=== PATIENT | female | born 1930 | race Caucasian/White ===

== ENCOUNTER 2016-12-08 10:18 | Emergency (ER) | payer OTHER ==
[~2016-12-08 10:18] MED LIST: APRESOLINE10 M1 PO; ARICEPT PO; ASPIRIN81 M2 PO; CORDARONE200 M1 PO; COUMADIN2.5 MG PO; COZAAR100 MG PO; GLUCOPHAGE500 MG PO; HYDRALAZINE HCL25 MG PO; HYDROCHLOROTHIA25 MG PO; LEXAPRO20 MG PO; LIPITOR40 MG PO; LOVENOX80 MG/0.8 INJ; TOPROL XL50 MG PO; TRILIPIX135 MG PO; VICODIN 5/500 T1 TAB PO
[2016-12-08 11:42] LABS: BASOPHIL# 0.1 X10e3 (0-0.3); BASOPHIL% 0.6 % (0-2.5); EOSINOPHIL# 0.3 X10e3 (0-0.7); EOSINOPHIL% 3.7 % (0.0-7.0); HEMATOCRIT 39.1 % (35.0-45.0); HEMOGLOBIN 12.5 gm/dL (12.0-16.0); LYMPHOCYTE% 12.3 % (17.0-45.0); MEAN CORPUSCULAR HEMOGLOBIN 27.5 PG (28-34); MONOCYTE# 0.8 X10e3 (0-1.0); MONOCYTE% 9.2 % (3.0-12.0); NEUTROPHIL# 6.1 X10e3 (1.5-7.1); NEUTROPHIL% 74.2 % (40-75); PLATELET COUNT 278 X10e3 (140-420); RED BLOOD COUNT 4.55 X10e (3.90-5.30); RED CELL DISTRIBUTION WIDTH 14.4 % (11.0-15.5); WHITE BLOOD COUNT 8.3 X10e3 (4.0-10.5)
[2016-12-08 11:49] LABS: DIFF IND NO
[2016-12-08 12:04] LABS: PARTIAL THROMBOPLASTIN TIME 63.7 SECONDS (23.5-31.3); PROTHROMBIN TIME (PATIENT) 98.3 SECONDS (9.6-11.5)
[2016-12-08 12:21] LABS: INR 8.7
[2016-12-08 12:35] LABS: URINE SOURCE CLEAN CATCH
[2016-12-08 12:43] LABS: URINE APPEARANCE CLEAR; URINE BILIRUBIN NEG (NEG); URINE BLOOD NEG (NEG); URINE COLOR YELLOW; URINE GLUCOSE NEG (NEG); URINE KETONE NEG (NEG); URINE LEUKOCYTE ESTERASE NEG (NEG); URINE NITRATE NEG (NEG); URINE PH 6.5 (5-8); URINE PROTEIN NEG (NEG); URINE SPECIFIC GRAVITY 1.013 (1.003-1.035)
[2016-12-08 12:56] LABS: CULTURE INDICATED? NO
[2016-12-08 13:06] LABS: BUN/CREATININE RATIO 11.66; CALCIUM SERUM 9.5 mg/dL (8.4-10.2); CREATININE SERUM 0.6 mg/dL (0.6-1.4); GLOM FILT RATE Estimated 83.7 mL/min (>60); POTASSIUM 3.5 mmol/L (3.5-5.1)
== END 2016-12-08 14:15 | disposition home or self-care (01) ==
LOC: CED 10:18 → CFTX 10:18 → CED 11:29
PROVIDERS: Emergency Medicine
DX: K05.219 Aggressive periodontitis, localized, unspecified severity (principal); R79.1 Abnormal coagulation profile; E78.5 Hyperlipidemia, unspecified; F03.90 Unspecified dementia, unspecified severity, without behavioral disturbance, psychotic disturbance, mood disturbance, and anxiety; I48.91 Unspecified atrial fibrillation; E11.9 Type 2 diabetes mellitus without complications; Z79.01 Long term (current) use of anticoagulants
CPT/HCPCS: 36415; 80048; 81003; 85025; 85610; 85730; 99283; J3430

== ENCOUNTER 2017-02-17 07:37 | Observation (INO) | payer OTHER ==
[~2017-02-17] VITALS: Ht 162.6 cm; Wt 73.4 kg
--- NOTE | ~2017-02-17 | CT52 ---
[facility] A Service of [facility] & [facility] RADIOLOGY TEXT RESULTS PATIENT: DOMINICK SCHOFIELD LOCATION: [facility] [id number] : 32 UNIT #: [id number] AGE: [address]: FABIENNE RAI MD SEX: F ORDER DR: [id number] [facility] [address] [place], [place] [address] [id number] E MR#: [id number] Acc #: [id number] NAME: DOMINICK SCHOFIELD : 1930 SEX: F STUDY DATE/TIME: UNIT: [facility] ROOM: STUDY DESCRIPTION: CT Cervical Spine Wo Cont Attending Physician: Patsy Aponte Pa-C Ordering Physician: Patsy Aponte Pa-C Primary Care Physician: Bobbi Sanders M.D. MEDICAL IMAGING REPORT This report is preliminary unless electronic signature is present EXAM CT cervical spine without contrast 02/17/2017 0952 hours HISTORY 86-year-old woman who fell while getting out of bed today complaining of neck tenderness and diffuse head pain. Low blood sugar at 23. COMPARISON None TECHNIQUE Thin cut axial noncontrasted images were obtained from the skull base to the upper thoracic spine. Sagittal and coronal reconstructions were performed. Total exam DLP 8331 mGy - cm. This CT exam was performed with one or more of the following radiation dose reduction techniques: automatic exposure control, adjustment of mA and/or kV according to patient size, and iterative reconstruction. FINDINGS Images through the posterior fossa demonstrate some atrophy. No skull base fracture is seen. The mastoid air cells are clear. There is spurring at the C1-2 articulation but no dens fracture seen. C2-3 is negative. C3-4 demonstrates disc height loss, disc osteophyte complex. Facet hypertrophy resulting in mild canal stenosis. There is 2 mm retrolisthesis of C2-C3 on C4. C4-5 demonstrates broad-based central disc osteophyte complex flattening the anterior aspect of the cord. There is no foraminal narrowing. No fracture. C5-6 demonstrates disc height loss, endplate uncovertebral spurring, [facility] A Service of [facility] & [facility] RADIOLOGY TEXT RESULTS PATIENT: DOMINICK SCHOFIELD [facility] [id number] [birth year] UNIT #: [id number] AGE: [address]: FABIENNE RAI MD SEX: F ORDER DR: central disc bulging resulting in mild to moderate central canal stenosis. No definite foraminal narrowing. C6-7 demonstrates broad-based disc bulging touching the anterior aspect of the cord without significant foraminal narrowing. No fracture. C7-T1 and T1-T2 are normal. Small low-density right thyroid nodule is incidentally noted. IMPRESSION There is degenerative disc disease in the cervical spine with no fracture. There is a few millimeters retrolisthesis of C3 on 4 and C5 on C6 related to degenerative disc disease and facet arthropathy. There is a central disc osteophyte complex at C3-4, C4-5 and C5-6 resulting in mild multilevel canal stenosis. Dictated by... Laney Frias M.D. THIS IS AN ELECTRONICALLY VERIFIED REPORT Laney Frias M.D. at 02/17/2017 6:53 PM LARA/silvia TD: 02/17/2017 15:35 JOB #: [id number] MEDICAL IMAGING REPORT Page 1 of 1 COPY
--- NOTE | ~2017-02-17 | HP ---
Unit #: [id number] #: [id number] Patient: DOMINICK SCHOFIELD [id number] [address] [address] [id number] E MR#: [id number] NAME: DOMINIKC SCHOFIELD ROOM: Age: 86 Sex: F Admission Date: 02/17/2017 : 1930 Attending Physician: Patsy Aponte Pa-C Primary Care Physician: Bobbi Sanders M.D. HISTORY AND PHYSICAL CHIEF COMPLAINT Low blood sugar. HISTORY OF PRESENT ILLNESS The patient is an 86-year-old female with a history of diabetes mellitus, hypertension, and mild dementia, brought to the emergency room with a low blood sugar. The patient is a poor historian, and the history is obtained by speaking to the ER physician and the R.N. at the bedside. The patient had a fall when getting out of bed earlier this morning, and patient was found to be hypotensive and had a blood sugar of 23. The patient stated that she has been feeling sick since this morning. She had a good night and denies any headache, chest pain, or shortness of breath. The patient is being admitted for the above reasons. She denies any fever, chills, nausea, or vomiting. The patient complains of abdominal discomfort in the lower abdomen, and denies any urinary urgency or hesitancy. PAST MEDICAL HISTORY 1. Hypertension. 2. Diabetes mellitus. 3. Depression. 4. Dementia. 5. Hyperlipidemia. 6. Tonsillectomy and adenoidectomy. ALLERGIES None. FAMILY HISTORY Positive for CVA. SOCIAL HISTORY Patient lives with her . She is a lifelong nonsmoker and does not drink alcohol. MEDICATIONS 1. Lexapro. 2. Cozaar. 3. Donepezil. 4. Ultram. 5. Coumadin. 6. Glipizide. 7. Vitamin B12. 8. Norvasc. 9. Neurontin. Unit #: [id number] #: [id number] Patient: DOMINICK SCHOFIELD 10. Simvastatin. 11. Metoprolol. 12. Hydralazine. 13. Trilipix. REVIEW OF SYSTEMS Patient had a fall, low blood sugar, and lower abdominal discomfort. The others systems were reviewed and positives are described above. The remaining other systems are negative. PHYSICAL EXAMINATION GENERAL: Patient is lying in bed not in acute distress. VITAL SIGNS: Temperature is 98.1, pulse 63, respiratory rate 16, blood pressure 153/75, and saturating 95% on room air. HEENT: Head atraumatic, normocephalic. Dry mucous membranes. NECK: Supple. LUNGS: Decreased air entry at the bases. HEART: Regular rate and rhythm. ABDOMEN: Soft. Positive bowel sounds. EXTREMITIES: No cyanosis, no clubbing. NEUROLOGIC: Alert, awake, and oriented. Equal strength throughout. Cranial nerves are intact. DIAGNOSTIC STUDIES LABORATORY: Glucose is 111. Troponin less than 0.05. Urinalysis shows 2+ leukocyte esterase and 25-50 urine WBCs. Sodium 139, potassium 4.3, chloride 107, bicarb 25, glucose 46, BUN 28, creatinine 1.7, AST 29, ALT 18, and albumin 4. INR is 2. WBC 12.7, hemoglobin 12.9, hematocrit 40.6, and platelets 302,000. IMAGING: X-ray of the spine shows mild wedge deformities of L5 and L3 which are age indeterminate without prior studies for comparison. Degenerative changes in the lumbar spine related to degenerative disc disease with facet arthropathy also present at L5-S1. Patient is status post prior vertebroplasty at T12. Chest x-ray shows cardiomegaly with low lung volumes but no effusion or dense consolidation. Status post vertebroplasty at the thoracolumbar junction. X-ray of the hip shows osteoporosis but no acute fracture. CT of the head shows no acute changes. CARDIOLOGY: EKG shows sinus rhythm with a first degree AV block, left anterior fascicular block, and no acute ST-T changes. ASSESSMENT 1. Hypoglycemia. 2. Acute kidney injury. 3. Status post fall. PLAN Admit the patient to observation with telemetry. Continue with IV fluids with D5 half normal saline at 75 mL/hour. Continue with empiric IV antibiotics and follow with the urine cultures. Check lactic acid. If it is high, initiate the sepsis protocol. Hold the antidiabetic medications, glipizide, and continue with low-dose sliding scale. Further recommendations will follow. Dictated by Fabienne Childress M.D. Unit #: [id number] #: [id number] Patient: DOMINICK SCHOFIELD Nicole TD: 02/17/2017 14:48 JOB #: [id number] HISTORY AND PHYSICAL Page 1 of 1 X FABIENNE CHILDRESS MD HISTORY AND PHYSICAL
--- NOTE | ~2017-02-17 | CT71 ---
[facility] A Service of [facility] RADIOLOGY TEXT RESULTS PATIENT: DOMINICK SCHOFIELD LOCATION: [facility]-01 : 32 UNIT #: [id number] AGE: [address]: FABIENNE RAI MD SEX: F ORDER DR: [id number] [facility] [address]. [place], [place] [address] [id number] E MR#: [id number] Acc #: [id number] NAME: DOMINICK SCHOFIELD : 1930 SEX: F STUDY DATE/TIME: 02/17/2017 9:55 UNIT: [facility] ROOM: STUDY DESCRIPTION: CT Head Wo Contrast Attending Physician: Patsy Aponte Pa-C Ordering Physician: Patsy Aponte Pa-C Primary Care Physician: Bobbi Sanders M.D. MEDICAL IMAGING REPORT This report is preliminary unless electronic signature is present EXAM Head CT no contrast 02/17/2017. INDICATIONS 86-year-old female with hypoglycemia. Fell while getting out of bed today. Neck tenderness and head pain all over. TECHNIQUE Noncontrast CT brain was performed. This CT exam was performed with one or more of the following radiation dose reduction techniques: automatic exposure control, adjustment of mA and/or kV according to patient size, and iterative reconstruction. COMPARISON 01/02/2016 FINDINGS There is generalized atrophy. Sulci and ventricles are otherwise unremarkable. No midline shift. No evidence of acute intracranial hemorrhage. There is no mass, mass effect, or edema to suggest acute infarct and no extraaxial fluid collections are present. Chronic ischemic changes are present in the periventricular white matter. Globes are intact. Bones are intact. Probable [id number] right maxillary sinus disease and chronic left maxillary sinus disease. IMPRESSION 1. No clearly acute intracranial process. No evidence of acute intracranial hemorrhage. 2. Atrophy and chronic ischemic changes. 3. Sinus disease, as described. Dictated by... Miles Moreno M.D. [facility] A Service of [facility] RADIOLOGY TEXT RESULTS PATIENT: DOMINICK SCHOFIELD LOCATION: [facility]-01 : [birth year] UNIT #: [id number] AGE: [address]: FABIENNE RAI MD SEX: F ORDER DR: THIS IS AN ELECTRONICALLY VERIFIED REPORT Miles Moreno M.D. at 02/18/2017 7:09 AM Kiera TD: 02/17/2017 16:28 JOB #: [id number] MEDICAL IMAGING REPORT Page 1 of 1 COPY
--- NOTE | ~2017-02-17 | CR150 ---
[facility] A Service of [facility] & [facility] RADIOLOGY TEXT RESULTS PATIENT: DOMINICK SCHOFIELD LOCATION: [facility] : 32 UNIT #: [id number] AGE: [address]: Patsy Aponte SEX: F ORDER DR: [id number] [facility] [address] [place], [place] [address] [id number] E MR#: [id number] Acc #: [id number] NAME: DOMINICK SCHOFIELD : 1930 SEX: F STUDY DATE/TIME: 02/17/2017 9:33 UNIT: [facility] ROOM: STUDY DESCRIPTION: CR Hip Min 2 Views Lt Attending Physician: Patsy Aponte Pa-C Ordering Physician: Patsy Aponte Pa-C Primary Care Physician: Bobbi Sanders M.D. MEDICAL IMAGING REPORT This report is preliminary unless electronic signature is present EXAM Left hip two-view 02/17/2017 INDICATION 86-year-old female who fell from her bed and has left hip pain and low back pain. Symptoms began today. Hypertension and diabetes. TECHNIQUE 2 views of the left hip. Comparison hip series 10/30/2009. FINDINGS The bones are osteoporotic. No acute fracture. There is mild degenerative change of both hips. Moderately large stool ball in the rectum. IMPRESSION 1. Osteoporosis but no acute fracture. Degenerative change in the hips bilaterally. Dictated by... Miles Moreno M.D. THIS IS AN ELECTRONICALLY VERIFIED REPORT Miles Moreno M.D. at 02/17/2017 12:39 PM Erma TD: 02/17/2017 11:43 JOB #: [id number] MEDICAL IMAGING REPORT Page 1 of 1 COPY
--- NOTE | ~2017-02-17 | DS ---
Unit #: [id number] #: [id number] Patient: DOMINICK SCHOFIELD [id number] [address] [place], [place] [address] [id number] I MR#: [id number] NAME: DOMINICK SCHOFIELD ROOM: 301 Age: 86 Sex: F Admission Date: 02/17/2017 : 1930 Discharge Date: 02/18/2017 Attending Physician: Alexander Rogers M.D. Primary Care Physician: Bobbi Sanders M.D. DISCHARGE SUMMARY PRIMARY DIAGNOSIS Hypoglycemia secondary to diabetic medications. SECONDARY DIAGNOSES Acute kidney injury and urinary tract infection. HOSPITAL COURSE The patient was placed in observation status after being found with a blood sugar of 20 after a fall at home. I looked through the ER records and through our records here and I cannot find any mention in the ER records nor in our admission records of any low blood pressures. In fact, the lowest blood pressure we have is 153/75, so I have restarted all of her home blood pressure medications. Her blood sugar has improved with holding of her oral diabetic medication and I have advised her to stay off her oral diabetic medication. I also will continue her on Omnicef for urinary tract infection. The urine cultures are pending at this time. The patient had some recent generalized weakness, and just completed a course of physical therapy at home last week. At this time, it does not appear that she needs additional physical therapy and family deferred on having a physical therapist come out to the house. The patient also was noted to have some hypercalcemia with calcium levels during this hospitalization ranging from 10.8 to 11.5. This does not appear to be new as it was present in 2013 and on lab check in 07/2016. The patient and her did not know what workup has been done in the past for this and I will defer to her primary doctor as to whether any new workup needs to be done or whether the diagnosis for this is already clearly established. At this time, I simply advised to the that the patient needs to drink plenty of fluid that does not contain sugar. The patient's creatinine improved from 1.7 down to 1.2 by the day of discharge. Her baseline creatinine is likely close to 1.2. DISCHARGE DISPOSITION To home. DISCHARGE STATUS Stable. DISCHARGE ACTIVITY Ad zen. DISCHARGE DIET Unit #: [id number] #: [id number] Patient: DOMINICK SCHOFIELD A diabetic, low-sodium diet with plenty of p.o. fluids. FOLLOWUP Follow up is with her primary care physician in 2 to 10 days. DISCHARGE MEDICATIONS Coumadin 2.5 mg on Friday, Friday, Friday, , and Friday and Neurontin 100 mg p.o. b.i.d., Lexapro 20 mg p.o. daily, fenofibric acid 135 mg p.o. daily, Norvasc 10 mg p.o. daily, metoprolol succinate 24-hour tablet 50 mg p.o. b.i.d., donepezil 10 mg p.o. q.h.s., simvastatin 40 mg p.o. q.h.s., hydralazine 50 mg p.o. t.i.d., Cozaar 100 mg p.o. daily, Ultram 50 mg p.o. q.8 hours p.r.n. pain, vitamin B12 1000 mcg p.o. daily, and Omnicef 300 mg p.o. b.i.d. for 3 days. Dictated by... Stewart Carey/monalisa TD: 02/20/2017 05:01 JOB #: [id number] DISCHARGE SUMMARY Page 1 of 1 X Alexander Rogers MD X DISCHARGE SUMMARY
--- NOTE | ~2017-02-17 | CR181 ---
[facility] A Service of [facility] & [facility] RADIOLOGY TEXT RESULTS PATIENT: DOMINICK SCHOFIELD LOCATION: [facility] : 32 UNIT #: [id number] AGE: [address]: Patsy Aponte SEX: F ORDER DR: [id number] [facility] [address] [place], [place] [address] [id number] E MR#: [id number] Acc #: [id number] NAME: DOMINICK SCHOFIELD : 1930 SEX: F STUDY DATE/TIME: 02/17/2017 9:18 UNIT: [facility] ROOM: STUDY DESCRIPTION: CR Lumbar Spine 2 or 3 Views Attending Physician: Patsy Aponte Pa-C Ordering Physician: Patsy Aponte Pa-C Primary Care Physician: Bobbi Sanders M.D. MEDICAL IMAGING REPORT This report is preliminary unless electronic signature is present EXAM Lumbar series 02/17/2017 INDICATION 86-year-old female who fell out of bed today. Altered mental status, lower back pain, hip pain. TECHNIQUE 3 views of the lumbar spine were performed. No comparison studies. FINDINGS The patient is status post vertebroplasty of T12. The bones are osteoporotic. There are degenerative changes of both hips. Alignment is preserved. Mild height loss at L3 and L5, age indeterminate without prior studies but perhaps chronic. Correlate with patient point tenderness. This could also be further assessed with MRI if there is persistent concern for acute compression fracture. There is degenerative disc disease at L5-S1, L4-5 and L3-4. The cross-table lateral view is degraded by underexposure and motion. IMPRESSION 1. Limited study due to technical factors. 2. There are mild wedge deformities of L5 and L3 which are age indeterminate without prior studies for comparison. Correlate with patient point tenderness or this could be further assessed with MRI. 3. Degenerative changes in the lumbar spine related to degenerative disc disease with facet arthropathy also present at L5-S1. 4. The patient is status post prior vertebroplasty at T12. Dictated by... Miles Moreno M.D. THIS IS AN ELECTRONICALLY VERIFIED REPORT [facility] A Service of [facility] & [facility] RADIOLOGY TEXT RESULTS PATIENT: DOMINICK SCHOFIELD LOCATION: [facility] : 32 UNIT #: [id number] AGE: [address]: Patsy Aponte SEX: F ORDER DR: Miles Moreno M.D. at 02/17/2017 12:39 PM Erma TD: 02/17/2017 11:49 JOB #: [id number] MEDICAL IMAGING REPORT Page 1 of 1 COPY
--- NOTE | ~2017-02-17 | EKG ---
PATIENT: DOMINICK SCHOFIELD UNIT #: [id number] Ventricular Rate: 65 BPM Atrial Rate: 65 BPM P-R Interval: 224 ms QRS Duration: 110 ms Q-T Interval: 432 ms QTC Calculation(Bezet): 449 ms P [place]: 59 degrees Calculated R [place]: -62 degrees Calculated T [place]: 51 degrees Diagnosis Line: Sinus rhythm with 1st degree A-V block Diagnosis Line: Left anterior fascicular block Diagnosis Line: Poor R wave progression questionable lead position Diagnosis Line: or body habitus Diagnosis Line: Abnormal ECG Diagnosis Line: When compared with ECG of 30-JUN-2014 07:09, Diagnosis Line: Questionable change in initial forces of Diagnosis Line: Anterolateral leads Diagnosis Line: Confirmed by KARRIE ROJAS MD ([id number]) on Diagnosis Line: 02/17/2017 8:28:30 PM INTERPRETING MD: MINAL
--- NOTE | ~2017-02-17 | CR63 ---
[facility] A Service of [facility] RADIOLOGY TEXT RESULTS PATIENT: DOMINICK SCHOFIELD LOCATION: [facility] : 32 UNIT #: [id number] AGE: [address]: Patsy Aponte SEX: F ORDER DR: [id number] [facility] [address] [place], [place] [address] [id number] E MR#: [id number] Acc #: [id number] NAME: DOMINICK SCHOFIELD : 1930 SEX: F STUDY DATE/TIME: 02/17/2017 9:14 UNIT: [facility] ROOM: STUDY DESCRIPTION: CR Chest 2 View Attending Physician: Patsy Aponte Pa-C Ordering Physician: Patsy Aponte Pa-C Primary Care Physician: Bobbi Sanders M.D. MEDICAL IMAGING REPORT This report is preliminary unless electronic signature is present EXAM 2-view chest 02/17/2017 INDICATIONS 86-year-old female who fell from her bed today and has altered mental status and shortness of air with low back pain. Hypoglycemia. Hypertension and diabetes. TECHNIQUE 2-view chest was performed and compared with 11/27/2011. FINDINGS The heart is enlarged. There is atherosclerotic change of the aorta. Lung volumes are low. There is bronchovascular crowding. No effusion or dense consolidation. No pneumothorax. The lateral view is degraded by motion. The patient is status post vertebroplasty at the thoracolumbar junction. IMPRESSION 1. Cardiomegaly with low lung volumes but no effusion or dense consolidation. 2. Status post vertebroplasty at the thoracolumbar junction. Dictated by... Miles Moreno M.D. THIS IS AN ELECTRONICALLY VERIFIED REPORT Miles Moreno M.D. at 02/17/2017 12:39 PM Erma TD: 02/17/2017 11:46 JOB #: [id number] [facility] A Service of [facility] RADIOLOGY TEXT RESULTS PATIENT: DOMINICK SCHOFIELD LOCATION: [facility] #: [id number] : 32 UNIT #: [id number] AGE: [address]: Patsy Aponte SEX: F ORDER DR: MEDICAL IMAGING REPORT Page 1 of 1 COPY
[2017-02-17 09:21] LABS: BASOPHIL% 0.2 % (0-2.5); EOSINOPHIL# 0.1 X10e3 (0-0.7); EOSINOPHIL% 0.4 % (0.0-7.0); HEMATOCRIT 40.6 % (35.0-45.0); HEMOGLOBIN 12.9 gm/dL (12.0-16.0); LYMPHOCYTE# 1.1 X10e3 (1.0-3.5); LYMPHOCYTE% 8.8 % (17.0-45.0); MEAN CELL VOLUME 87.2 FL (83-96); MEAN CORPUSCULAR HEMOGLOBIN 27.7 PG (28-34); MEAN CORPUSCULAR HGB CONC 31.8 g/dL (30-36); MEAN PLATELET VOLUME 7.9 FL (6.5-11.5); MONOCYTE# 1.1 X10e3 (0-1.0); NEUTROPHIL# 10.3 X10e3 (1.5-7.1); NEUTROPHIL% 81.6 % (40-75); PLATELET COUNT 302 X10e3 (140-420); RED BLOOD COUNT 4.66 X10e (3.90-5.30); RED CELL DISTRIBUTION WIDTH 15.4 % (11.0-15.5); WHITE BLOOD COUNT 12.7 X10e3 (4.0-10.5)
[2017-02-17 09:24] LABS: DIFF IND NO
[2017-02-17 09:33] LABS: POC - CKMB 4.2 ng/mL (0.0-7.9); POC - TROPONIN <0.05 ng/mL (<=0.05)
[2017-02-17 09:39] LABS: PARTIAL THROMBOPLASTIN TIME 36.7 SECONDS (23.5-31.3)
[2017-02-17 09:48] LABS: BILIRUBIN,TOTAL 0.5 mg/dL (0.2-2.0); BUN/CREATININE RATIO 16.47; CALCIUM SERUM 11.5 mg/dL (8.4-10.2); CREATININE SERUM 1.7 mg/dL (0.6-1.4); GLOM FILT RATE Estimated 27.2 mL/min (>60); POTASSIUM 4.3 mmol/L (3.5-5.1); PROTEIN TOTAL SERUM 7.7 g/dL (6.0-8.3); PROTHROMBIN TIME (PATIENT) 22.2 SECONDS (10.0-11.7)
[2017-02-17 10:55] LABS: URINE APPEARANCE CLEAR; URINE BILIRUBIN NEG (NEG); URINE BLOOD NEG (NEG); URINE COLOR YELLOW; URINE GLUCOSE NEG (NEG); URINE KETONE NEG (NEG); URINE LEUKOCYTE ESTERASE 2+ (NEG); URINE NITRATE NEG (NEG); URINE PH 7.5 (5-8); URINE PROTEIN NEG (NEG); URINE SPECIFIC GRAVITY 1.013 (1.003-1.035)
[2017-02-17 10:56] LABS: CULTURE INDICATED? YES; U HYALINE CASTS AUWI 0-2 /[LPF]; URBCS1 AUWI 0-2 /[HPF] (0-2); URINE BACTERIA AUWI NEG (NEGATIVE); URINE SQUAMOUS EPITHELIAL CELL OCC /[HPF]; UWBCS1 AUWI 25-50 (0-5)
[2017-02-17 11:08] LABS: URINE SOURCE CATH
[2017-02-17] MEDS ORDERED: PATIENT'S PHARMACY (11:14)
[2017-02-17] MEDS ORDERED: ULTRAM PO (11:14)
[2017-02-17] MEDS ORDERED: COZAAR PO (11:14)
[2017-02-17] MEDS ORDERED: DONEPEZIL HCL10 MG PO (11:14)
[2017-02-17] MEDS ORDERED: LEXAPRO20 MG PO (11:14)
[2017-02-17] MEDS ORDERED: COUMADIN PO (11:15)
[2017-02-17] MEDS ORDERED: NORVASC10 MG PO (11:15)
[2017-02-17] MEDS ORDERED: B-121000 MC1 PO (11:15)
[2017-02-17] MEDS ORDERED: GLIPIZIDE XL5 MG PO (11:15)
[2017-02-17] MEDS ORDERED: METOPROLOL SUCC50 MG PO (11:16)
[2017-02-17] MEDS ORDERED: NEURONTIN100 MG PO (11:16)
[2017-02-17] MEDS ORDERED: HYDRALAZINE HCL50 MG PO (11:16)
[2017-02-17] MEDS ORDERED: SIMVASTATIN40 MG PO (11:16)
[2017-02-17] MEDS ORDERED: TRILIPIX135 MG PO (11:17)
[2017-02-17 11:33] LABS: POC - CKMB 5.2 ng/mL (0.0-7.9); POC - TROPONIN <0.05 ng/mL (<=0.05)
[2017-02-18 06:20] LABS: HEMATOCRIT 39.4 % (35.0-45.0); MEAN CELL VOLUME 86.8 FL (83-96); MEAN CORPUSCULAR HEMOGLOBIN 28.6 PG (28-34); MEAN CORPUSCULAR HGB CONC 32.9 g/dL (30-36); MEAN PLATELET VOLUME 7.9 FL (6.5-11.5); RED BLOOD COUNT 4.54 X10e (3.90-5.30); RED CELL DISTRIBUTION WIDTH 15.2 % (11.0-15.5); WHITE BLOOD COUNT 12.8 X10e3 (4.0-10.5)
[2017-02-18 07:37] LABS: BUN/CREATININE RATIO 11.66; CALCIUM SERUM 10.8 mg/dL (8.4-10.2); CREATININE SERUM 1.2 mg/dL (0.6-1.4); GLOM FILT RATE Estimated 41.5 mL/min (>60); POTASSIUM 4.5 mmol/L (3.5-5.1)
[2017-02-18] MEDS ORDERED: OMNICEF300 M1 PO (13:34)
== END 2017-02-18 16:03 | disposition home or self-care (01) ==
LOC: CED 07:37 → CEDOF 11:45 → CED 17:23 → C3A PCU 20:34
PROVIDERS: Internal Medicine; Physician Assistant Medical
DX: E11.649 Type 2 diabetes mellitus with hypoglycemia without coma (principal); T38.3X5A Adverse effect of insulin and oral hypoglycemic [antidiabetic] drugs, initial encounter; Z79.84 Long term (current) use of oral hypoglycemic drugs; N17.9 Acute kidney failure, unspecified; N39.0 Urinary tract infection, site not specified; Z91.81 History of falling; Z79.01 Long term (current) use of anticoagulants; M50.30 Other cervical disc degeneration, unspecified cervical region; M51.36 Other intervertebral disc degeneration, lumbar region; F03.90 Unspecified dementia, unspecified severity, without behavioral disturbance, psychotic disturbance, mood disturbance, and anxiety
CPT/HCPCS: 36415; 51701; 70450; 71020; 72100; 72125; 73502; 80048; 80053; 81003; 82553; 82947; 83036; 83605; 84484; 85025; 85027; 85610; 85730; 87086; 93005; 96374; 96375; 97116; 97162; 97166; 97535; 99291; G0378; G8978-GP; G8979-GP; G8987-GO; G8988-GO; J0696; J1630; J1815